=== PATIENT | male | born 1945 | race Two or more races ===

== ENCOUNTER 2018-04-10 10:47 | Emergency (ER) | payer SELFPAY ==
[~2018-04-10] VITALS: Ht 167.6 cm; Wt 72.6 kg
[2018-04-10] MEDS ORDERED: NKM (10:54)
[2018-04-10 10:58] VITALS: BP 174/95
--- NOTE | 2018-04-10 10:59 | NUR ---
ED Nurse Note: pt walked in to ED with daughter due to tripped and fall injury this morning around 0530. per pt, missed step on the stairs. c/o pain with movement. swelling noted on right forearm and hand. pain started from right shoulder that radiated to whole right arm. AAO x4. respirations even and non-labored noted. skin warm to touch. no open wound noted. pt denies any head injury. not on any blood thinner. will wait for the further order.
[2018-04-10] MEDS ORDERED: Tylenol #3 tab (300mg/30mg) PO ONE (11:00)
--- NOTE | 2018-04-10 11:07 | NUR ---
ED Nurse Note: will hold meds due to pt took tylenol 800mg at home around 1010. Dr. Laguna notified.
--- NOTE | 2018-04-10 11:13 | NUR ---
HAND-OFF: Report given to CAROLINA Falcon. pending x-ray.
--- NOTE | 2018-04-10 11:15 | Emergency Room Report ---
History of Present Illness General Chief Complaint: Upper Extremity Injury Source: Patient Present Illness HPI 73-year-old male presents ED for evaluation. Patient brought in by daughter for mechanical fall. [place] [employer] and tripped and fell landing on his right shoulder. Happened this morning. Presenting with pain to his right shoulder, right wrist pain. Throbbing, 10 out of 10, nonradiating. Denies hitting his head or LOC. Denies any other injuries. No other aggravating relieving factors. Denies any other associated symptoms Allergies: Coded Allergies: No Known Allergies (Unverified , 04/10/18) Patient History Past Medical History: none Past Surgical History: none Pertinent Family History: none Social History: Denies: smoking, alcohol use, drug use Immunizations: UTD Reviewed Nursing Documentation: PMH: Agreed; PSxH: Agreed Nursing Documentation-PMH Past Medical History: No Stated History Review of Systems All Other Systems: negative except mentioned in HPI Physical Exam Vital Signs Date Time Temp Pulse Resp B/P (MAP) Pulse Ox O2 Delivery O2 Flow Rate FiO2 04/10/18 10:49 98.1 74 16 174/95 96 Room Air Sp02 EP Interpretation: reviewed, normal General Appearance: no apparent distress, alert, GCS 15, non-toxic Head: normocephalic, atraumatic Eyes: bilateral eye normal inspection, bilateral eye PERRL ENT: hearing grossly normal, normal pharynx, no angioedema, normal voice Neck: full range of motion, supple/symm/no masses Respiratory: chest non-tender, lungs clear, normal breath sounds, speaking full sentences Cardiovascular #1: regular rate, rhythm, no edema Cardiovascular #2: 2+ carotid (R), 2+ carotid (L), 2+ radial (R), 2+ radial (L) , 2+ dorsalis pedis (R), 2+ dorsalis pedis (L) Gastrointestinal: normal bowel sounds, non tender, soft, non-distended, no guarding, no rebound Rectal: deferred Genitourinary: normal inspection, no CVA tenderness Musculoskeletal: back normal, gait/station normal, decreased range of motion - R shoulder, tender - R wrist Neurologic: alert, oriented x3, responsive, motor strength/tone normal, sensory intact, speech normal Psychiatric: judgement/insight normal, memory normal, mood/affect normal, no suicidal/homicidal ideation Reflexes: 3+ bicep (R), 3+ bicep (L), 3+ tricep (R), 3+ tricep (L), 3+ knee (R) , 3+ knee (L) Skin: normal color, no rash, warm/dry, well hydrated Lymphatic: no adenopathy Procedures Splinting Splinting : Consent: Verbal Pre-Made Type: shoulder immobilizer Pre-Proc Neuro Vasc Exam: normal Post-Proc Neuro Vasc Exam: normal Patient Tolerated: Well Complications: None Procedural Sedation Consent: Written Pre-Sedation Assessment: Eval. Immed. Prior to Sed, Pre-proc Edu. done, Plan for Sedation Discuss Airway Assessment (Malampati): I Heart: normal Lungs: normal Abdomen: normal Extremities: normal Procedures/Plans: Closed Reduction Plan for Moderate Sedation: Propofol - 60mg ASA Score: I Start Time: 12:50 End Time: 13:00 Communication: No Apparent Limitation Mental Status: Awake Respiration: Unlabored Skin Condition: WNL Abdomen: WNL Nausea: NO Vomiting: NO Medical Decision Making Diagnostic Impression: Primary Impression: Shoulder dislocation Qualified Codes: S43.004A - Unspecified dislocation of right shoulder joint, initial encounter ER Course Hospital Course 73-year-old male presents to ED complaining of R shoulder pain Differential diagnoses include: Fracture, dislocation, sprain, contusion Clinical course Patient placed on stretcher. After initial history and physical I ordered x- rays of right shoulder, wrist and hand Right shoulder x-ray shows dislocation Xrays of R hand and R wrist negative Procedural sedation performed using propofol. Respiratory therapist at bedside. Patient stable vitals on conveyor monitor. Shoulder reduced ( performed by MELBA Cabrera) without complication. Placed in shoulder immobilizer. Repeat shoulder x-ray shows adequate reduction. Discussed findings with patient. Daughter at bedside. Placed in shoulder immobilizer. Safe for discharge with close outpatient follow-up. Patient states he does not have a PMD. We'll provide referrals, and ortho referral Diagnosis - shoulder dislocation Stable and discharged to home with prescription for tylenol. Followup with PMD/ ortho. Return to ED if symptoms recur or worsen Other X-Ray Diagnostic Results Other X-Ray Diagnostic Results #1: X-Ray ordered: R shoulder # of Views/Limited Vs Complete: 3 View Indication: Pain EP Interpretation: Yes Interpretation: no soft tissue swelling, no fractures, other - R shoulder dislocation Impression: Other - dislocated shoulder Electronically Signed by: Electronically signed by Brandon Laguna MD Other X-Ray Diagnostic Results #2: X-Ray ordered: R wrist # of Views/Limited Vs Complete: 3 View Indication: Pain EP Interpretation: Yes Interpretation: no dislocation, no soft tissue swelling, no fractures Impression: No acute disease Electronically Signed by: Electronically signed by Brandon Laguna MD Other X-Ray Diagnostic Results #3: X-Ray ordered: R hand # of Views/Limited Vs Complete: 3 View Indication: Pain EP Interpretation: Yes Interpretation: no dislocation, no soft tissue swelling, no fractures Impression: No acute disease Electronically Signed by: Electronically signed by Brandon Laguna MD Last Vital Signs Date Time Temp Pulse Resp B/P (MAP) Pulse Ox O2 Delivery O2 Flow Rate FiO2 04/10/18 10:58 98.1 74 16 174/95 96 Room Air Status: improved Disposition: HOME, SELF-CARE Condition: Stable Scripts Acetaminophen* (TYLENOL EXTRA STRENGTH*) 500 Mg Tablet 500 MG ORAL Q8H PRN for Prn Headache/Temp > 101, #30 TAB 0 Refills Prov: Brandon Laguna MD 04/10/18 Brandon Laguna MD Apr 10, 2018 11:15
--- NOTE | 2018-04-10 11:26 | NUR ---
ED Nurse Note: Spoke with RUBEN Wong regarding X-ray being taken
--- NOTE | 2018-04-10 12:13 | Diagnostic Imaging Report ---
Indication: Right shoulder pain Technique: 3 views of the right shoulder Comparison: none Findings: There is anterior dislocation of the right humeral head. Questionable deformity of the superior humeral head on the Y-view could indicate a Hill-Sachs deformity. Impression: Positive for right shoulder dislocation Equivocal Hill-Sachs deformity Findings discussed by phone with Dr. Laguna in the emergency room at the time of interpretation
--- NOTE | 2018-04-10 12:15 | NUR ---
ED Nurse Note: Dr. Posey spoke with family regarding procedural sedation, Obtained informed consent from family.
--- NOTE | 2018-04-10 12:15 | Diagnostic Imaging Report ---
Indication: Right hand pain, trauma Technique: 3 views right hand Comparison: none Findings: Joint space irregularity and slight subluxations are seen involving the second through fifth distal interphalangeal joints and the fifth proximal interphalangeal joint. There is also joint space narrowing of the first interphalangeal joint. No acute fractures. No dislocations. A small cyst is seen within the scaphoid. There is mild narrowing of the lateral aspect of the radiocarpal joint. Impression: Degenerative changes, as described No acute bony trauma
--- NOTE | 2018-04-10 12:22 | Diagnostic Imaging Report ---
Clinical Indication:Wrist pain Technique: 3 views of the right wrist Comparison: None Findings: Well-circumscribed cyst is seen within the scaphoid. No acute fractures. No dislocations. There is mild narrowing of the lateral radiocarpal joint space. The remaining joint spaces are preserved. Impression: No acute process
[2018-04-10] MEDS ORDERED: Propofol 200mg/20ml IV ONE ×2 (12:38→13:15)
--- NOTE | 2018-04-10 12:50 | NUR ---
ED Nurse Note: Procedure started with timeout at 1250, procedure ended at 1300
[2018-04-10] MEDS ORDERED: TYLENOL EXTRA500 MG ORAL (13:53)
--- NOTE | 2018-04-10 14:00 | NUR ---
ER DISCHARGE NOTE: Patient is cleared to be discharged per ERMD, pt is aox4, on room air, with stable vital signs. pt was given dc and prescription instructions, pt was able to verbalize understanding, pt id band and iv site removed without complications. pt is able to ambulate with steady gait. pt took all belongings. Patient's mode of discharge is with daughter
--- NOTE | 2018-04-10 14:16 | Diagnostic Imaging Report ---
Indication: Post reduction, pain Technique: One view of the right shoulder Comparison: 1 1/2 hours earlier Findings: Interim reduction of previously demonstrated right shoulder dislocation, now appearing well aligned. No definite fracture demonstrated Impression: Satisfactory reduction of previously dislocated right shoulder, as described
[2018-04-10 14:17] VITALS: BP 175/90
--- NOTE | 2018-04-10 21:35 | Emergency Room Report ---
History of Present Illness General Chief Complaint: Upper Extremity Injury Source: Patient Present Illness HPI I Performed supervised shoulder reduction of the right shoulder while this patient was under procedural sedation, please see Dr. Laguna's initial chart for full HPI, ROS, PE, MDM and Final disposition. This not is for procedural charting purposes. Allergies: Coded Allergies: No Known Allergies (Unverified , 04/10/18) Nursing Documentation-[facility] Past Medical History: No Stated History Physical Exam Vital Signs Date Time Temp Pulse Resp B/P (MAP) Pulse Ox O2 Delivery O2 Flow Rate FiO2 04/10/18 10:49 98.1 74 16 174/95 96 Room Air 04/10/18 13:10 2.0 Procedures Procedural Sedation Consent: Verbal Time out called at: 12:50 Pre-Sedation Assessment: Elective, Eval. Immed. Prior to Sed, Pre-proc Edu. done, Plan for Sedation Discuss Airway Assessment (Malampati): I Heart: normal Lungs: normal Abdomen: normal Extremities: normal Procedures/Plans: Closed Reduction Plan for Moderate Sedation: Propofol ASA Score: II Procedure Narrative 30mg Propofol was administered by Dr. Laguna at 1255, and an additional 30mg was given at 1258 for a total of 60mg. Pt. demonstrated good anesthetic/ sedative results. Single attempt was made using traction-counter traction technique, Visible and palpable reduction of the shoulder was achieved. Pt. placed right shoulder immobilizer and remained NVI. Post reduction films show successful reduction of the right shoulder. Pt. remained under close observation. Pt. tolerated procedure well, there were no complications. Start Time: 12:55 End Time: 13:00 Total Time: 0010 Post-Sedation Assessment Pt. tolerated procedure and sedation without complication, there was no airway compromise, pt. continues to maintain O2 saturation % above 96%. Communication: No Apparent Limitation Mental Status: Awake Respiration: Unlabored Skin Condition: WNL Abdomen: WNL Nausea: NO Vomiting: NO Additional Comments: Pt. remained under observation while awaiting post-reduction imaging and for post procedural sedation observation. No Complications noted. pt. awake and alert, no episodes of vomiting. Medical Decision Making PA Attestation Dr. anaya is my supervising Physician whom patient management has been discussed with. Diagnostic Impression: Primary Impression: Shoulder dislocation Qualified Codes: S43.004A - Unspecified dislocation of right shoulder joint, initial encounter ER Course I Performed supervised shoulder reduction of the right shoulder while this patient was under procedural sedation, please see Dr. Laguna's initial chart for full HPI, ROS, PE, MDM and Final disposition. This not is for procedural charting purposes. Last Vital Signs Date Time Temp Pulse Resp B/P (MAP) Pulse Ox O2 Delivery O2 Flow Rate FiO2 04/10/18 14:17 98.5 76 19 100 Room Air 2.0 74 100 67 100 75 100 73 04/10/18 14:00 152/86 Disposition: HOME, SELF-CARE Condition: Stable Scripts Acetaminophen* (TYLENOL EXTRA STRENGTH*) 500 Mg Tablet 500 MG ORAL Q8H PRN for Prn Headache/Temp > 101, #30 TAB 0 Refills Prov: Brandon Laguna MD 04/10/18 Referrals: NOT CHOSEN IPA/,REFERRING (PCP) [facility] [facility]. [facility] Open 24 hour /7 days a week by Appointment Only [address] [facility] [id number] [facility] Patient Instructions: Shoulder Dislocation, Rakn-li-Xmow Courtney Cabrera Apr 10, 2018 21:35
== END 2018-04-10 14:00 | disposition home or self-care (01) ==
LOC: EMR 11:15
DX: S43.004A Unspecified dislocation of right shoulder joint, initial encounter (principal); W19.XXXA Unspecified fall, initial encounter; Y93.01 Activity, walking, marching and hiking; Y92.89 Other specified places as the place of occurrence of the external cause
CPT/HCPCS: 23655; 73020; 73030; 73110; 73130; 96360; 99284; J2704

== ENCOUNTER 2019-11-12 05:53 | Emergency (ER) | payer SELFPAY ==
[~2019-11-12] VITALS: Ht 167.6 cm; Wt 72.6 kg
[~2019-11-12 05:53] MED LIST: NKM; TYLENOL EXTRA500 MG ORAL
[2019-11-12 06:11] VITALS: BP 154/84
--- NOTE | 2019-11-12 06:11 | NUR ---
ED Nurse Note: pt walked into ED from home c/o right shoulder dislocation s/p fall. Pt denies hitting head, or losing conciousness. Pt is AAOx4, respirations even and unlabored. vitals stable as documented.
--- NOTE | 2019-11-12 06:18 | Emergency Room Report ---
History of Present Illness General Chief Complaint: Upper Extremity Injury Source: Patient Present Illness HPI Patient is a 74-year-old male who presents for increased right-sided shoulder pain. Patient states he fell subsequently had increased pain to the right shoulder had previous dislocations in the past. States he feels like his shoulder is dislocated. Denies any other locations of pain. Took some pain medication prior to arrival. Allergies: Coded Allergies: No Known Allergies (Unverified , 04/10/18) COVID-19 Screening Contact w/high risk pt: No Experienced COVID-19 symptoms?: No COVID-19 Testing performed DIRECTOR OF [employer]ATIONAL SALES: No Patient History Past Medical History: see triage record Reviewed Nursing Documentation: PMH: Agreed; PSxH: Agreed Nursing Documentation-PMH Past Medical History: No Stated History Review of Systems All Other Systems: negative except mentioned in HPI Physical Exam Vital Signs Date Time Temp Pulse Resp B/P (MAP) Pulse Ox O2 Delivery O2 Flow Rate FiO2 11/12/19 06:04 97.9 57 18 154/84 (107) 94 Room Air General Appearance: well appearing, no apparent distress, alert, GCS 15 Head: normocephalic, atraumatic ENT: hearing grossly normal, normal voice Neck: full range of motion, supple Respiratory: chest non-tender, lungs clear, no respiratory distress, speaking full sentences Cardiovascular #1: normal inspection Gastrointestinal: normal inspection, soft Musculoskeletal: other - Right upper extremity with decreased range of motion and anterior fullness Neurologic: motor strength/tone normal, inpatient nursing aide III-XII nml as tested, oriented x3, normal gait Psychiatric: mood/affect normal Skin: no rash Medical Decision Making Diagnostic Impression: Primary Impression: Shoulder dislocation ER Course Patient presented for right shoulder pain. Differential diagnosis include was not limited to dislocation, fracture, AC separation, contusion among others. X- ray imaging was ordered to patient's recent trauma. While patient was pending x-ray shoulder was reduced with Obrien technique. Patient tolerated this well. Adequate reduction. Post reduction x-ray showed no evidence of acute fracture, there appears to be a cystic lesion to the proximal humeral head. Patient was placed in a sling. He was advised to follow-up with his doctor for orthopedic consult. The patient is advised to follow up with primary care doctor in 1-2 days. Patient is advised to return if any worsening condition or if any changes in status that are concerning. This report is dictated with [employer] weight tester software which may occasionally lead to discrepancies related to use of this software. Last Vital Signs Date Time Temp Pulse Resp B/P (MAP) Pulse Ox O2 Delivery O2 Flow Rate FiO2 11/12/19 06:04 97.9 57 18 154/84 (107) 94 Room Air Status: improved Disposition: HOME, SELF-CARE Condition: Stable Scripts Diclofenac Sodium (VOLTAREN) 100 Gm Gel..gram. 5 GM TP DAILY for pain, #100 GM Prov: Jesus Trevino MD 11/12/19 Jesus Trevino MD Nov 12, 2019 06:18
[2019-11-12] MEDS ORDERED: VOLTAREN100 G1 TP (06:20)
--- NOTE | 2019-11-12 06:24 | NUR ---
ED Nurse Note: arm sling placed on pt
--- NOTE | 2019-11-12 06:25 | NUR ---
ED Nurse Note: wafer fab technician at bedside
[2019-11-12 06:34] VITALS: BP 136/82
--- NOTE | 2019-11-12 06:34 | NUR ---
ER DISCHARGE NOTE: Patient is cleared to be discharged per ERMD, pt is aox4, on room air, with stable vital signs. pt was given dc and prescription instructions, pt was able to verbalize understanding, pt id band removed. pt is able to ambulate with steady gait. pt took all belongings.
--- NOTE | 2019-11-12 20:44 | Diagnostic Imaging Report ---
Indication: Right shoulder pain Technique: 3 views of the right shoulder Comparison: 04/10/2018. Note the clinical history states "post reduction"; no prereduction images provided Findings: No acute fractures. No dislocations. The joint spaces are preserved. Exam is limited as no external rotation view is provided. Impression: Limited exam. No gross acute bony trauma
== END 2019-11-12 06:34 | disposition home or self-care (01) ==
LOC: EMR 06:30
DX: S43.004A Unspecified dislocation of right shoulder joint, initial encounter (principal); W01.0XXA Fall on same level from slipping, tripping and stumbling without subsequent striking against object, initial encounter; Y93.9 Activity, unspecified; Y92.9 Unspecified place or not applicable
CPT/HCPCS: 99283